=== PATIENT | female | born 1955 | race Caucasian/White ===

== ENCOUNTER 2023-01-21 17:22 | Emergency (ER) | payer MEDICARE ==
[2023-01-21 17:37] VITALS: O2SAT 100
[2023-01-21 18:01] LABS: BASOPHILS % (AUTO) 0.5 %; EOSINOPHILS # (AUTO) 0.6 10^3/uL (0.0-0.7); EOSINOPHILS % (AUTO) 7.8 %; HGB - HEMOGLOBIN 13.5 g/dL (12.0-16.0); LYMPHOCYTES # (AUTO) 2.9 10^3/uL (1.5-3.5); LYMPHOCYTES % (AUTO) 37.5 %; MEAN CORPUSCULAR HEMOGLOBIN 28.2 pg (27.0-31.0); MEAN CORPUSCULAR HGB CONC 32.1 g/dL (32.0-36.0); MEAN CORPUSCULAR VOLUME 87.9 fL (81.0-99.0); MEAN PLATELET VOLUME 8.6 fL (7.9-10.8); MONOCYTES # (AUTO) 0.5 10^3/uL (0.0-1.0); NEUTROPHILS # (AUTO) 3.7 10^3/uL (1.5-6.6); NEUTROPHILS % (AUTO) 47.9 %; PLT - PLATELET COUNT 325 10^3/uL (130-450); RED BLOOD COUNT 4.78 10^6/uL (4.20-5.40); RED CELL DISTRIBUTION WIDTH 12.8 % (12.0-15.0); WHITE BLOOD COUNT 7.7 x10^3/uL (4.8-10.8)
[2023-01-21 18:09] LABS: PT - PROTHROMBIN TIME 10.6 secs (9.9-12.6)
[2023-01-21 18:18] LABS: ALBUMIN 4.5 g/dL (3.2-5.5); ALBUMIN/GLOBULIN RATIO 1.7 (1.0-2.2); BILIRUBIN,TOTAL 0.3 mg/dL (0.2-1.0); CALCIUM 9.8 mg/dL (8.5-10.3); CREATININE 0.9 mg/dL (0.6-1.3); POTASSIUM 3.7 mmol/L (3.5-4.5); TOTAL PROTEIN 7.2 g/dL (6.4-8.9)
[2023-01-21] MEDS ORDERED: LORazepam 2 MG/ML VIAL IVP STA (18:20)
--- NOTE | 2023-01-21 18:28 | ED Physician Documentation ---
History of Present Illness - Stated complaint Stated Complaint: NODDED OFF/BRIEF L SIDE TINGLING/DIZZY - Chief complaint Chief Complaint: Neuro - History obtained from History obtained from: Patient - History of Present Illness Timing: Today Pain level max: 0 Pain level now: 0 - Additonal information Additional information: 68-year-old female presents to the emergency department stating that she felt her body jerked today like she was waking up startled from sleep, she states she was not asleep however and was at the dinner table. She does live by herself. She states that she felt a tingling to the left side of the face that lasted for approximately 15 seconds. That has since resolved. She states now she just feels mildly dizzy and panicked. She states that she had a mother with a stroke and a father that had bilateral carotid endarterectomies in the past. Patient denies any medical history. No surgeries. Does not take any medications. She does drink alcohol daily. She states 1 cocktail per day. Denies any tobacco or drug use. Currently patient is asymptomatic other than feeling anxious and mildly dizzy. Review of Systems Constitutional: denies: Fever, Chills Respiratory: denies: Cough GI: denies: Nausea, Vomiting, Diarrhea Skin: denies: Rash Musculoskeletal: denies: Neck pain, Back pain Neurologic: denies: Headache PD PAST MEDICAL HISTORY - Past Medical History Past Medical History: No - Past Surgical History Past Surgical History: No - Allergies Allergies/Adverse Reactions: Allergies Allergy/AdvReac Type Severity Reaction Status Date / Time ampicillin Allergy Rash Verified 01/21/23 17:36 - Social History Does the pt smoke?: No Smoking Status: Never smoker Does the pt drink ETOH?: Yes ETOH Use: Liquor Does the pt have substance abuse?: No - Immunizations Immunizations are current?: Yes PD ED PE NORMAL - Vitals Vital signs reviewed: Yes - General General: Alert and oriented X 3, No acute distress - HEENT HEENT: Moist mucous membranes - Neck Neck: Supple, no meningeal sign - Cardiac Cardiac: RRR, Strong equal pulses - Respiratory Respiratory: No respiratory distress, Clear bilaterally - Abdomen Abdomen: Soft, Non tender, Non distended - Derm Derm: Warm and dry - Extremities Extremities: No edema, No calf tenderness / cord - Neuro Neuro: Alert and oriented X 3, pedigree researcher 2-12 intact, No motor deficit, No sensory deficit, Normal speech, Other (Normal gait. Normal cerebellar test.) Eye Opening: Spontaneous Motor: Obeys Commands Verbal: Oriented GCS Score: 15 - Psych Psych: Normal mood, Normal affect Results - Vitals Vitals: Vital Signs - 24 hr 01/21/23 01/21/23 17:29 20:30 Temperature 35.8 C L Heart Rate 74 62 Respiratory 16 19 Rate Blood Pressure 153/100 H 117/84 H O2 Saturation 100 100 Oxygen O2 Source Room air - EKG (time done) 2034 EKG releavant findings:: EKG personally interpreted by author of this note. Relevant findings are: Rate: Rate (enter#) (65) Rhythm: NSR Blairs: Normal Intervals: Normal DC QRS: Normal Ischemia: Normal ST segments - Labs Labs: Laboratory Tests 01/21/23 01/21/23 01/21/23 17:56 17:56 17:56 WBC 7.7 RBC 4.78 Hgb 13.5 Hct 42.0 MCV 87.9 MCH 28.2 MCHC 32.1 RDW 12.8 Plt Count 325 MPV 8.6 Neut # (Auto) 3.7 Lymph # (Auto) 2.9 [place] # (Auto) 0.5 Eos # (Auto) 0.6 Baso # (Auto) 0.0 Absolute Nucleated RBC 0.00 Nucleated RBC % 0.0 PT 10.6 INR 1.0 Sodium 137 Potassium 3.7 Chloride 102 Carbon Dioxide 28 Anion Gap 7.0 BUN 20 Creatinine 0.9 Estimated GFR (MDRD) 62 L Glucose 115 H Calcium 9.8 Total Bilirubin 0.3 AST 19 ALT 14 Alkaline Phosphatase 60 Total Protein 7.2 Albumin 4.5 Globulin 2.7 Albumin/Globulin Ratio 1.7 Lipase 37 - Rads (name of study) Brain MRI Relevant Findings:: Final report received, See rad report head Ct Relevant Findings:: Final report received, See rad report angio head and neck CT Relevant Findings:: Final report received, See rad report PD Medical Decision Making - ED course Complexity details: reviewed results, re-evaluated patient, considered differential, d/w patient ED course: 68-year-old female with paresthesias earlier today, no abnormalities on MRI, of the brain. No abnormalities on head CT, angiogram of the head and neck. Patient asymptomatic here. She was quite anxious and did receive Ativan for the MRI. This helped to calm her down as well. Has a history of bilateral carotid endarterectomies in her father and a massive stroke in her mother. We will have her start on an aspirin daily and have her follow-up with her PCP for the remainder of a TIA/stroke workup including cholesterol studies and further workup. Labs are unremarkable. Patient is in sinus rhythm. No acute findings on EKG. Patient counseled regarding signs and symptoms for which I believe and urgent re-evaluation would be necessary. Patient with good understanding of and agreement to plan and is comfortable going home at this time This document was made in part using voice recognition software. While efforts are made to proofread this document, sound alike and grammatical errors may occur. Departure - Departure Disposition: 01 Home, Self Care Clinical Impression: Stroke-like symptoms, Paresthesias Condition: Good Instructions: ED Paraesthesias Follow-Up: your,doctor in 1 week [Other] Comments: Your head CT, CT angiogram of the head and neck and MRI do not show any acute abnormalities today. Please follow-up with your doctor in about a week. Please start on a baby aspirin daily, 81 mg. Please return if you worsen. Forms: PCP List NIHSS - Time Time: 18:00 - Level of Consciousness Level of consciousness: (0) Alert, Keenly responsive LOC Questions: (0) Answers both Q's correct LOC Commands: (0) Performs both correctly - Gaze Best Gaze: (0) Normal - Visual Visual: (0) No loss - Facial Palsy Facial Palsy: (0) Normal, symmetrical movement - Motor Arms (both separate) Motor Arm (right): (0) No drift Motor Arm (left): (0) No drift - Motor Legs (both separate) Motor Leg (right): (0) No drift Motor Leg (left): (0) No drift - Limb Ataxia Limb Ataxia: (0) Absent - Sensory Sensory: (0) Normal - Best Language Best Language: (0) No aphasia - Dysarthria Dysarthria: (0) Normal - Extinction and Inattention (formally neg Extinction and inattention: (0) No abnormality - Total Score/Results Total Score/Result: 0
--- NOTE | 2023-01-21 19:47 | MRI Report ---
PROCEDURE: BRAIN WO INDICATIONS: L facial numbness TECHNIQUE: Noncontrast axial T1 spin echo, axial T2 fast spin echo, sagittal and axial FLAIR, coronal T2 fast sp in echo, axial gradient echo, axial diffusion and ADC through the brain. COMPARISON: None. FINDINGS: Image quality: Diagnostic. CSF Spaces: Basal cisterns are patent. No extra-axial fluid collections. Ventricles are normal in size and shape. Brain: No intracranial masses or hemorrhage. Bacon/white matter interface is normal. Brainstem appe ars normal. Diffusion-weighted images demonstrate no acute ischemic insult. No chronic ischemic ins ults. Normal intravascular flow voids are present. In this patient with this given history, scrutiny is given to the trigeminal nerves. To the limits of this standard protocol noncontrast study, no significant abnormality of the trigeminal nerves is det ected. Age-appropriate brain parenchymal volume loss and chronic small vessel ischemic change can be seen. Skull and face: Calvarium has normal marrow signal. Orbits appear normal. Sinuses: Sinuses and mastoids are clear. IMPRESSION: No findings of acute or subacute infarction are seen. The limits of this examination, no significant abnormality of the trigeminal nerves can be seen. Reviewed by: Michael Hill MD on 01/21/2023 6:45 PM [facility] Approved by: Michael Hill MD on 01/21/2023 6:45 PM [facility] Station ID: [id number]
--- NOTE | 2023-01-21 20:40 | CT Report ---
PROCEDURE: HEAD WO INDICATIONS: L facial numbness TECHNIQUE: Noncontrast 4.5 mm thick angled axial sections acquired from the foramen magnum to the vertex. For r adiation dose reduction, the following was used: automated exposure control, adjustment of mA and/or kV according to patient size. COMPARISON: MR brain 01/21/2023 at 6:54 PM. FINDINGS: Image quality: Excellent. CSF spaces: Basal cisterns are patent. No extra-axial fluid collections. Ventricles are normal in size and shape. Brain: No midline shift. No intracranial masses or hemorrhage. Bacon-white matter interface is norm al. Skull and face: Calvarium and visualized facial bones are intact, without suspicious lesions. Sinuses: Visualized sinuses and mastoids are clear. IMPRESSION: No acute intracranial pathology. Reviewed by: Wilmer Mesa MD on 01/21/2023 8:39 PM PST Approved by: Wilmer Mesa MD on 01/21/2023 8:39 PM PST Station ID: [id number]
--- NOTE | 2023-01-21 20:45 | CT Report ---
PROCEDURE: CT Angio Head/Neck INDICATIONS: L sided face tingling TECHNIQUE: After the administration of intravenous contrast, 1 mm thick sections acquired from the aortic arch t hrough the [place]. 3-dimensional gayultj-hleqkhgcz-etildazujb (MIP) and/or volume renderin g reformats were acquired of the central intracranial vasculature and neck separately. For radiation dose reduction, the following was used: automated exposure control, adjustment of mA and/or kV acco rding to patient size. CONTRAST: 100 mL Omnipaque 300 intravenous COMPARISON: CT head and MR brain 01/21/2023 FINDINGS: Image quality: Diagnostic. HEAD CT: CSF Spaces: Basal cisterns are patent. No extra-axial fluid collections. Ventricles are normal in size and shape. Brain: The brain is within normal limits for age and scanning technique. Skull and face: Calvarium and visualized facial bones appear intact, without suspicious lesions. Sinuses: Visualized sinuses and mastoids are clear. HEAD CT ANGIOGRAPHY: Anterior circulation: Intracranial internal carotid arteries are normal in size and flow. The flow within the paired anterior cerebral arteries is normal and symmetric. The flow within the middle cer ebral arteries is normal and symmetric. The anterior communicating artery is seen. No aneurysms are seen. Posterior circulation: Visualized portions of the vertebral arteries demonstrate normal caliber, and join to form a normal appearing basilar artery. Flow within the posterior cerebral arteries is norm al and symmetric. No aneurysms are seen. NECK CT ANGIOGRAPHY: Carotid system: The great vessels demonstrate a conventional anatomy as they arise from the aortic a rch. The origins of the common carotid arteries appear patent. The common carotid arteries demonstr ate normal caliber and courses. The bifurcation regions are both widely patent. The internal caroti d arteries demonstrate normal calibers and courses. Posterior circulation: The origins of the vertebral arteries both appear widely patent. The more melara perior extracranial portions of both vertebral arteries also demonstrate normal courses and calibers. They join to form a normal appearing basilar artery. Soft tissues: Visualized neck soft tissues demonstrate no suspicious abnormalities. Bones: No suspicious bony lesions. Minimal degenerative changes in the cervical spine. IMPRESSION: No hemodynamically significant arterial stenosis, dissection, or large vessel occlusion within the [place] arteries of the head and neck. The estimate of stenosis included in the report of the imaging study was calculated using the NASCET method Reviewed by: Wilmer Mesa MD on 01/21/2023 8:44 PM PST Approved by: Wilmer Mesa MD on 01/21/2023 8:44 PM PST Station ID: [id number]
[2023-01-21] MEDS ORDERED: ASPIRIN CHEW 81 MG TABLET PO STA (21:03)
[2023-01-21 22:05] VITALS: BP 112/77
[2023-01-27] MEDS ORDERED: iohexoL-300 100 ML VIAL IVP ONE (20:19)
== END 2023-01-21 21:35 | disposition home or self-care (01) ==
LOC: ED 17:22
DX: R20.2 Paresthesia of skin (principal); F41.9 Anxiety disorder, unspecified; Z82.3 Family history of stroke; Z84.89 Family history of other specified conditions
CPT/HCPCS: 36415; 70450; 70496; 70498; 70551; 80053; 83690; 85025; 85610; 93005; 96374; 99283; 99284; A9270; J2060